=== PATIENT | male | born 1975 ===

== ENCOUNTER 2017-03-24 05:45 | Emergency (ER) | payer OTHER, MEDICARE ==
[~2017-03-24] VITALS: Ht 190.5 cm; Wt 131.5 kg
[2017-03-24] MEDS ORDERED: LANTUS100 UNITS/ SUB-Q (05:58)
[2017-03-24] MEDS ORDERED: NOVOLOG100 UNIT/1 SUB-Q (05:59)
== END 2017-03-24 06:07 | disposition home or self-care (01) ==
LOC: ED 05:45
DX: Z04.1 Encounter for examination and observation following transport accident (principal); Z89.611 Acquired absence of right leg above knee; E11.9 Type 2 diabetes mellitus without complications; F17.200 Nicotine dependence, unspecified, uncomplicated; Z79.4 Long term (current) use of insulin
CPT/HCPCS: 99283